=== PATIENT | female | born 1990 | race Caucasian/White ===

== ENCOUNTER 2023-09-06 11:04 | Emergency (ER) | payer BC, SELFPAY ==
[2023-09-06 11:16] VITALS: BP 148/94; PULSE 84; RESP 16; TEMP 37; O2SAT 98; BMI 29.6
[2023-09-06] MEDS: PREDNISONE 20 MG TABLET 40 MG PO (11:49)
--- NOTE | 2023-09-06 15:14 | ED_ITS ---
HPI - Skin/Abscess/Foreign Bdy General Chief complaint: Skin/Abscess/Foreign Body Stated complaint: SKIN ABCESS Time Seen by Provider: 09/06/23 11:33 Source: patient Mode of arrival: walk-in History of Present Illness HPI narrative: The patient presenting with a localized area of itching and redness in her right deltoid area after obtaining the COVID vaccination booster. The patient have no fever no other complaints Related Data Previous Rx's Medication Instructions Recorded alclometasone 0.05 % topical cream 1 applic topical BID PRN skin 09/06/23 irritation #45 grams Allergies Allergy/AdvReac Type Severity Reaction Status Date / Time No Known Allergies Allergy Mild Verified 09/06/23 11:37 Review of Systems ROS Status of ROS 10 or more systems reviewed and unremark able except as noted in history and below [facility] Social History Smoking status: Never smoker Exam Narrative Exam Narrative: Nurses notes and vital signs reviewed and patient is not hypoxic. General: Well-appearing and in no apparent distress. Skin: Warm, dry, no pallor noted. No rash. Head: Normocephalic, atraumatic. Neck: Supple, non-tender. Eye: Pupils are equal, round and EOMI. No scleral icterus. Ears, Nose, Mouth, and Throat: TM are clear, no nasal mucosal hypertrophy. Oral mucosa is moist, no posterior oropharynx erythema, uvula is mid-line Cardiovascular: Regular Rate and Rhythm without murmur, gallop or rub. Respiratory: No accessory muscle use or respiratory distress. Lungs are clear to auscultation, no wheezing, rales or rhonchi Chest Wall: no tenderness Back: No midline thoracic or lumbar vertebral tenderness. No CVA tenderness Musculoskeletal: On the lateral aspect of the right arm mostly at the deltoid area the patient have 5 cm x 5 cm circular redness and induration of the skin. There is inflammation but no infection GI: Abdomen is soft, non-distended. Normal bowel sounds. No masses appreciated. No tenderness to palpation. No rebound, guarding, or rigidity noted. Neurological: A&O x4. No cranial nerve dysfunction observed. No truncal ataxia. Moves all extremities. Sensation intact. Psychiatric: Cooperative and interactive. Normal mood and affect. Constitutional Vital Signs, click to edit/add: Last Vital Signs Temp 98.6 F 09/06/23 11:16 Pulse 84 09/06/23 11:16 Resp 16 09/06/23 11:16 BP 148/94 H 09/06/23 11:16 Pulse Ox 98 09/06/23 11:16 O2 Del Method Room Air 09/06/23 11:16 Course Vital Signs Vital signs: Vital Signs Temperature 98.6 F 09/06/23 11:16 Pulse Rate 84 09/06/23 11:16 Respiratory Rate 16 09/06/23 11:16 Blood Pressure 148/94 H 09/06/23 11:16 Pulse Oximetry 98 09/06/23 11:16 Oxygen Delivery Method Room Air 09/06/23 11:16 Temperature 98.6 F 09/06/23 11:16 Pulse Rate 84 09/06/23 11:16 Respiratory Rate 16 09/06/23 11:16 Blood Pressure 148/94 H 09/06/23 11:16 Pulse Oximetry 98 09/06/23 11:16 Oxygen Delivery Method Room Air 09/06/23 11:16 MDM - Skin/Abscess/Foreign Bdy MDM Narrative Medical decision making narrative: The patient presented with a local dermatitis mostly secondary to the vaccine itself Right now the patient will be treated with local steroid cream twice daily The patient is to follow up with primary care physician in next 2-3 days or to return to the emergency department should any of the signs or symptoms worsen or new symptoms develop. The patient agrees with the following Diagnosis and Treatment plan and the patient will be discharged home. Discharge Plan Discharge Chief Complaint: Skin/Abscess/Foreign Body Clinical Impression: Dermatitis Patient Disposition: Home, Self-Care Time of Disposition Decision: 11:36 Condition: Good Prescriptions / Home Meds: New alclometasone 0.05 % cream 1 applic topical BID PRN (Reason: skin irritation) Qty: 45 0RF Instructions: Dermatitis (ED) Stand Alone Forms: Portal Instructions Referrals: Physician,Non-Staff, MD [Primary Care Provider] - 1 week Discharge Date/Time: 09/06/23 12:10
== END 2023-09-06 12:10 | disposition home or self-care (01) ==
PROVIDERS: Emergency Provider Emergency Medicine
DX: L30.9 Dermatitis, unspecified (principal)
CPT/HCPCS: 99283; J7512

== ENCOUNTER 2025-03-24 08:30 | Outpatient (OUT) | payer BC, SELFPAY ==
--- NOTE | 2025-03-24 | XR_ITS ---
[facility] [place] [id number] Patient Name: DULCE MARIA BARTLETT MRN: [id number] date: 1990 Sex: F Assigned Patient Location: [facility] Current Patient Location: [facility] Accession/Order Number: [id number] Exam Date: 03/24/2025 10:44 Report Date: 03/24/2025 10:45 At the request of: MARICRUZ GALVAN NP Procedure: XR foot LT min 3V LEFT FOOT - 3 views CLINICAL HISTORY: Acute left heel pain for 2 weeks COMPARISON: None FINDINGS: No focal soft tissue abnormality. No acute bony process is seen. Joint spaces appear maintained. No bony erosions. XR/XR foot LT min 3V IMPRESSION: NO ACUTE BONY PROCESS. Impression dictated by: Dewey Shaver Jr., D.O. 03/24/2025 10:45 AM Dictation Location: [place] [address] Electronically authenticated by: [id number] Y Date: 03/24/2025 10:45
--- OUTSIDE RECORDS SUMMARY | 2025-03-24 08:45 | XMS_ITS | CCD ---
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 Name Role Phone Aranza Aaron Attending Unavailable Allergies Allergy Classification Reported Allergen(s) Allergy Type Date of Onset Reaction(s) Facility (1 source) bismuth subsalicylate; Translations: [Pepto-Bismol] Drug Allergy [facility] Repository Results Test Name Value Interpretation Reference Range [facility] Family Medicine Office/Clini c Noteon 02-17-2024 Family Medicine Office/Clinic Note HPI Staff Dulce Maria is a 33 year old female presenting to [facility] Establish Care: History: Any previous diagnosis: History of seeing any specialist: none When was your last doctors visit: Last provider: Dr Friedman Any recent labs: Labs last year in [facility] UTD: Colonoscopy: no Mammogram: no Pelvic/Pap: 2 years ago normal Acute: Current issues/complaints: Rash on face over last 1-2 months, feels dry and flaky has changed her soap and lotion to try and help with the dryness. 08/2023 has been taking Pepcid since beginning of year about every other day and now she has to take medication daily. History of Present Illness pt presents today with rash on face and reflux Review of Systems PHQ Score Initial Depression Screen Score: 0 SCORE Physical Exam Vitals & Measurements HR: 80(Peripheral) RR: 18 BP: 122/76 SpO2: 98% HT: 67 in HT: 171 cm WT: 92.6 kg WT: 203.72 lb BMI: 31.67 General: alert, no acute distress ENMT: oral mucosa moist, no pharyngeal erythema or exudate Cardiovascular: regular rate and rhythm, normal peripheral perfusion Respiratory: Lungs CTA, respirations non labored Extremities: no deformity, no trauma Neurological: oriented x 4, LOC appropriate for age, CN II-XII intact, motor strength equal & normal bilaterally, speech normal red, dry bumpy rash on face and forehead Assessment/Plan 1. Rash of face (R21: Rash and other nonspecific skin eruption) rash on face and forehead. she has tried different soaps and moisturizers. samples of cerave provided. if no improvement will refer to derm Ordered: omeprazole, 40 mg = 1 cap(s), Oral, Daily, # 90 cap(s), Refills(s) 1, [id number], cm, 02/17/24 15:52:00 EDT, Height/Length Dosing, 92.6, kg, 02/17/24 15:52:00 EDT, Weight Dosing 2. Acid reflux (K21.9: Gastro-esophageal reflux disease without esophagitis) will order omeprazole Ordered: omeprazole, 40 mg = 1 cap(s), Oral, Daily, # 90 cap(s), Refills(s) 1, Pharmacy: [facility]/pharmacy #[id number], 171, cm, 02/17/24 15:52:00 EDT, Height/Length Dosing, 92.6, kg, 02/17/24 15:52:00 EDT, Weight Dosing 3. BMI 31.0-31.9,adult (Z68.31: Body mass index [BMI] 31.0-31.9, adult) bmi education given Ordered: omeprazole, 40 mg = 1 cap(s), Oral, Daily, # 90 cap(s), Refills(s) 1, Pharmacy: [facility]/pharmacy #[id number], 171, cm, 02/17/24 15:52:00 EDT, Height/Length Dosing, 92.6, kg, 02/17/24 15:52:00 EDT, Weight Dosing 4. Non-smoker (Z78.9: Other specified health status) continue not smoking Ordered: omeprazole, 40 mg = 1 cap(s), Oral, Daily, # 90 cap(s), Refills(s) 1, Pharmacy: [facility]/pharmacy #[id number], 171, cm, 02/17/24 15:52:00 EDT, Height/Length Dosing, 92.6, kg, 02/17/24 15:52:00 EDT, Weight Dosing Follow-up No qualifying data available Problem List/Past Medical History Ongoing Acid reflux Rash of face Historical No qualifying data Procedure/Surgical History Surgery (2005), Surgery (1997), Surgery. Medications omeprazole 40 mg Cap-DR, 40 mg= 1 cap(s), Oral, Daily, 1 refills Allergies Pepto-Bismol (Rash) Social History Tobacco Never (less than 100 in lifetime) Tobacco Use:. Never Smokeless Tobacco Use:. Household tobacco concerns: No., 02/17/2024 [facility] Comment on above: Result Comment: Electronically Signed By : Galen MAI, Aranza Flanagan\.br\Date and Time Signed: 02/17/24 16:33 EDT Encounters Encounter Date Encounter Type Care Provider Facility Start: 02-17-2024 End: 02-17-2024 ambulatory Aranza Aaron Facility:[facility] Start: 02-15-2024 ambulatory Aranza Aaron Facility:[facility] Payers Date Payer Category Payer Unknown [id number] 1990 Unknown [id number] Summary Purpose Family History No Family History Records Found Advance Directives No Advanced Directives Records Found Additional Source Comments INFORMATION SOURCE (unrecogn ized section and content) DATE CREATED AUTHOR 02/19/2024 [facility] FOR RECORDS PERTAINING TO PATIENTS WHO ARE OR HAVE BEEN ENROLLED IN A CHEMICAL DEPENDENCY/SUBSTANCEABUSE PROGRAM, SOME INFORMATION MAY BE OMITTED. This clinical summary was aggregated from multiple sources. Caution should be exercised in using it in the provision of clinical care. This summary normalizes information from multiple sources, and as a consequence, information in this document may materially change the coding, format and clinical context of patient data. In addition, data may be omitted in some cases. CLINICAL DECISIONS SHOULD BE BASED ON THE PRIMARY CLINICAL RECORDS. [employer] provides no warranty or guarantee of the accuracy or completeness of information in this document.
== END 2025-03-24 08:31 | disposition home or self-care (01) ==
LOC: RAD 08:32
PROVIDERS: PCP Nurse Practitioner; Visit Provider Nurse Practitioner Family
DX: M79.672 Pain in left foot (principal)
CPT/HCPCS: 73630